=== PATIENT | male | born 1980 | race American Indian/Alaskan Native ===

== ENCOUNTER 2017-12-14 19:46 | Emergency (ER) | payer SELFPAY ==
[2017-12-14 20:14] VITALS: BP 164/90
== END 2017-12-15 01:04 | disposition left against medical advice (07) ==
LOC: ED 19:46
DX: R21 Rash and other nonspecific skin eruption (principal); Z53.21 Procedure and treatment not carried out due to patient leaving prior to being seen by health care provider